=== PATIENT | female | born 1945 | race Caucasian/White ===

== ENCOUNTER 2016-10-08 09:18 | Observation (INO) | payer MEDICARE, BC ==
[2016-10-08] MEDS ORDERED: NS 0.9% 1000 ML* 1,000 ML IV ONE (09:49)
[2016-10-08 10:13] LABS: Hematocrit 46 % (35-47); Hemoglobin 15.1 g/dl (12.0-16.0); Mean Corpuscular HGB Conc 33 g/dl (31-36); Mean Corpuscular Hemoglobin 29 pg (27-31); Mean Corpuscular Volume 89 fL (80-97); Mean Platelet Volume 8 um3 (7.4-10.4); Red Blood Count 5.16 10^6/ul (4.0-5.4); Red Cell Distribution Width 15 % (10.5-15); White Blood Count 11.7 10^3/ul (3.5-10.8)
[2016-10-08 10:17] LABS: Add Diff/Slide Review? Slide Review Added; Comments Flag Yes
--- NOTE | 2016-10-08 10:24 | RAD ---
HISTORY: Upper abdominal pain COMPARISONS: June 14, 2011 VIEWS:1: Single frontal portable view of the chest at 10:00 AM FINDINGS: LINES AND TUBES: None. CARDIOMEDIASTINAL SILHOUETTE: The cardiomediastinal silhouette is normal for portable technique. PLEURA: The costophrenic angles are sharp. No pleural abnormalities are noted. LUNG PARENCHYMA: There is hyperinflation. There is emphysematous change of the lung apices. ABDOMEN: The upper abdomen is clear. There is no subphrenic gas. BONES AND SOFT TISSUES: No bone or soft tissue abnormalities are noted. IMPRESSION: EMPHYSEMA
[2016-10-08 10:29] LABS: Urine Bacteria Absent (Absent); Urine Bilirubin Negative (Negative); Urine Glucose Negative (Negative); Urine Nitrite Negative (Negative)
[2016-10-08 10:43] LABS: Albumin 3.6 g/dL (3.2-5.2); BUN/Creatinine Ratio 25.6 (8-20); C Reactive Protein 24.3 mg/L (< 5.00); Calcium 9.7 mg/dL (8.6-10.3); EGFR African American 79.4 (>60); EGFR Non-African American 61.7 (>60); Globulin 3.5 g/dL (2-4); Magnesium 2.2 mg/dL (1.9-2.7); Potassium 4.3 mmol/L (3.5-5.0); Total Bilirubin 1.5 mg/dL (0.2-1.0); Total Protein 7.1 g/dL (6.4-8.9)
[2016-10-08 10:45] LABS: Troponin I 0.03 ng/mL (<0.04)
[2016-10-08 10:51] LABS: TSH (Thyroid Stimulating Horm) 2.29 mcIU/mL (0.34-5.60)
[2016-10-08] MEDS ORDERED: Iohexol 300* (CONTRAST) 10 ML SDV IV ONE (11:23)
--- NOTE | 2016-10-08 12:09 | RAD ---
INDICATION: Epigastric and left upper quadrant pain and decreased oral intake. COMPARISON: There are no prior studies available for comparison. TECHNIQUE: A CT scan of the abdomen and pelvis was performed with intravenous and oral contrast following intravenous injection of 60 ml of Omnipaque 300 nonionic contrast. Contiguous axial sections were obtained from the lung bases through the symphysis pubis. Images were reconstructed in the coronal and sagittal planes. FINDINGS: Emphysematous changes are noted at the lung bases which are clear. No pleural effusion is present. The liver is markedly enlarged with numerous hypodense lesions present throughout the liver measuring up to 2.5 cm in size most consistent with diffuse metastatic disease. No intra or extra hepatic ductal distention is seen. The gallbladder appears contracted. No calcific gallstones are noted. The spleen is normal in size with a single central coarse calcification possibly related to old granulomatous disease. The pancreas appears to be within normal limits and is displaced toward the left side by the enlarged liver. No pancreatic ductal distention is seen. The left adrenal gland appears mildly enlarged. The right adrenal gland appears to be within normal limits. The kidneys are normal in size. No renal calculi or hydronephrosis is seen. There are bilateral renal cysts measuring up to 2.0 cm in size. The aorta is ectatic with moderate to severe calcific plaque present. No aneurysm is seen. No significant enlarged retroperitoneal lymph nodes are seen. There are enlarged left inguinal lymph nodes measuring up to 1.5 cm in transverse dimension. The stomach, small and large bowel appear nondistended. The appendix is not well visualized. There is a long segment of mild small bowel wall thickening involving the distal ileum. There is moderate descending and sigmoid diverticulosis without evidence for diverticulitis. The uterus is retroverted and normal in size. No adnexal cyst or masses are seen. There is a small amount of free intraperitoneal fluid present within the dependent portion of the pelvis. No free to peritoneal air is seen. No significant focal osseous abnormality is seen. IMPRESSION: 1. MARKEDLY ENLARGED LIVER WITH NUMEROUS DIFFUSE LESIONS MOST CONSISTENT WITH METASTATIC DISEASE. 2. MILD THICKENING OF THE WALL OF THE DISTAL SMALL BOWEL SUGGESTING THE POSSIBILITY OF ENTERITIS. 3. ENLARGED LEFT INGUINAL LYMPH NODES. 4. SMALL AMOUNT OF FREE INTRAPERITONEAL FLUID.
--- NOTE | 2016-10-08 12:41 | RAD ---
HISTORY: Epigastric pain, nausea, rule out metastatic disease COMPARISONS: CT of the abdomen and pelvis dated October 08, 2016 TECHNIQUE: Multiple contiguous axial CT scans of the chest were obtained without intravenous contrast. Coronal and sagittal multiplanar reformations are also submitted for review. FINDINGS: The study is limited by the lack of intravenous contrast. This limits evaluation of the solid organs and vasculature. NECK AND THYROID: The lower neck and thyroid are unremarkable. CHEST WALL: There is no lower cervical, axillary, or supraclavicular lymphadenopathy by size criteria. HEART AND PERICARDIUM: The heart is unremarkable. AORTA AND PULMONARY VASCULATURE: The aorta and pulmonary vasculature are normal. MEDIASTINUM: There is probable AP window and subcarinal lymphadenopathy. Evaluation is limited by lack of intravenous contrast. MARKY: There is an approximately 4.4 x 3.6 cm infrahilar mass on the left AIRWAY AND ESOPHAGUS: There is partial opacification of the bronchi to the left lower lobe LUNG PARENCHYMA: There is advanced centrilobular and panacinar emphysematous change PLEURA: No pleural abnormalities are noted. UPPER ABDOMEN: Again noted is enlarged liver with multiple hepatic masses BONES AND SOFT TISSUES: No bone or soft tissue abnormalities are noted. OTHER: None. IMPRESSION: EMPHYSEMA WITH 4.4 CM LEFT INFRAHILAR MASS AND PROBABLE MEDIASTINAL LYMPHADENOPATHY
[2016-10-08] MEDS ORDERED: Morphine INJ* 2 MG/ML 1 ML SYRINGE IV PRN (12:54)
[2016-10-08] MEDS ORDERED: Docusate CAP* 100 MG PO PRN (12:54)
[2016-10-08] MEDS ORDERED: Temazepam CAP* 15 MG PO PRN (12:54)
[2016-10-08] MEDS ORDERED: oxyCODONE TAB* 5 MG TAB PO PRN (13:00)
--- NOTE | 2016-10-08 13:41 | ED ---
angy Fields Timothy, scribed for Oscar Ryan MD on 10/08/16 at 0939 . Abdominal Pain/Female - HPI Summary HPI Summary: Phoebe Carmen is a 70 yo female presenting to [facility] with 7/10 intermittent left sided abd pain radiating to her back, and nausea since 09/24/16. Pt has had her teeth out recently, and has been on a non-chewy diet. Her is present in room, and states she did not eat much in the past 2 days. She has had some diarrhea recently as well. Her pain is alleviated to some extent with BM. She states she also has a lot of saliva, but has no respiratory symptoms. Her MHx includes HTN, reflux, PNA. - History of Current Complaint Chief Complaint: EDAbdPain Stated Complaint: STOMACH PAIN Time Seen by Provider: 10/08/16 09:35 Hx Obtained From: Patient Onset/Duration: Gradual Onset, Lasting Weeks, Still Present Timing: Intermittent Episode Lasting Severity Initially: Moderate Severity Currently: Moderate Pain Intensity: 7 Pain Scale Used: 0-10 Numeric Location: Diffuse - left sided Radiates: Yes Radiates to: Back Associated Signs and Symptoms: Positive: Nausea Allergies/Adverse Reactions: Allergies Allergy/AdvReac Type Severity Reaction Status Date / Time No Known Allergies Allergy Verified 10/08/16 07:35 Home Medications: Home Medications Lisinopril TAB* [Prinivil TAB*] 20 mg PO DAILY 10/08/16 [History Confirmed 10/08] Metoprolol Tartrate TAB* [Lopressor TAB*] 25 mg PO BID 10/08/16 [History Confirmed 10/08/16] amLODIPine TAB* [Norvasc 5 mg TAB*] 5 mg PO DAILY 10/08/16 [History Confirmed ] PMH/Surg Hx/FS Hx/Imm Hx Endocrine/Hematology History: Denies: Hx Diabetes, Hx Thyroid Disease Cardiovascular History: Reports: Hx Hypertension Respiratory History: Denies: Hx Asthma, Hx Chronic Obstructive Pulmonary Disease (COPD) GI History: Reports: Other GI Disorders - refluxm undiagnosed Denies: Hx Ulcer Infectious Disease History: Denies: Hx Hepatitis, Hx Human Immunodeficiency Virus (HIV), History Other Infectious Disease, Traveled Outside the [place] in Last 30 Days - Family History Known Family History: Positive: Unknown - PT ADOPTED, Hypertension - Social History Alcohol Use: Rare Substance Use Type: Reports: None Smoking Status (MU): Former Smoker - quit 05/21/16 Review of Systems Constitutional: Negative Eyes: Negative ENT: Other - increased saliva Cardiovascular: Negative Respiratory: Negative Positive: Abdominal Pain - left sided, radiates to back, Diarrhea, Nausea Genitourinary: Negative Musculoskeletal: Negative Skin: Negative Neurological: Negative Psychological: Normal All Other Systems Reviewed And Are Negative: Yes Physical Exam Triage Information Reviewed: Yes Vital Signs On Initial Exam: Initial Vitals Temp Pulse Resp BP 97.9 F 107 18 131/108 10/08/16 09:20 10/08/16 09:20 10/08/16 09:20 10/08/16 09:20 Vital Signs Reviewed: Yes Appearance: Positive: No Pain Distress, Well-Nourished, Ill-Appearing Skin: Positive: Warm, Skin Color Reflects Adequate Perfusion, Dry Head/Face: Positive: Normal Head/Face Inspection Eyes: Positive: EOMI, PANDA ENT: Positive: Hearing grossly normal, Other - oral mucosa dry. Negative: Muffled/hoarse voice Neck: Positive: Supple, Nontender Respiratory/Lung Sounds: Positive: Clear to Auscultation, Breath Sounds Present Cardiovascular: Positive: RRR Abdomen Description: Positive: Soft. Negative: Nontender - mild tenderness in epigastrium LUQ Bowel Sounds: Positive: Hypoactive Musculoskeletal: Positive: Strength/ROM Intact Neurological: Positive: Sensory/Motor Intact, Alert, Oriented to Person Place, Time Psychiatric: Positive: Affect/Mood Appropriate Diagnostics - Vital Signs Vital Signs Temp Pulse Resp BP 10/08/16 09:20 97.9 F 107 18 131/108 - Laboratory Lab Results: Lab Results 10/08/16 10/08/16 10/08/16 Range/Units 09:45 09:45 09:45 WBC 11.7 H (3.5-10.8) 10^3/ul RBC 5.16 (4.0-5.4) 10^6/ul Hgb 15.1 (12.0-16.0) g/dl Hct 46 (35-47) % MCV 89 (80-97) fL MCH 29 (27-31) pg MCHC 33 (31-36) g/dl RDW 15 (10.5-15) % Plt Count 270 (150-450) 10^3/ul MPV 8 (7.4-10.4) um3 Neut % (Auto) 86.1 H (38-83) % Lymph % (Auto) 6.7 L (25-47) % [place] % (Auto) 6.5 (1-9) % Eos % (Auto) 0.1 (0-6) % Baso % (Auto) 0.6 (0-2) % Absolute Neuts (auto) 10.1 H (1.5-7.7) 10^3/ul Absolute Lymphs (auto) 0.8 L (1.0-4.8) 10^3/ul Absolute Monos (auto) 0.8 (0-0.8) 10^3/ul Absolute Eos (auto) 0 (0-0.6) 10^3/ul Absolute Basos (auto) 0.1 (0-0.2) 10^3/ul Absolute Nucleated RBC 0.01 10^3/ul Nucleated RBC % 0.1 INR (Anticoag Therapy) 0.93 (0.89-1.11) APTT 26.5 (26.0-36.3) seconds Sodium 140 (133-145) mmol/L Potassium 4.3 (3.5-5.0) mmol/L Chloride 107 (101-111) mmol/L Carbon Dioxide 20 L (22-32) mmol/L Anion Gap 13 H (2-11) mmol/L BUN 23 (6-24) mg/dL Creatinine 0.90 (0.51-0.95) mg/dL Est GFR ( Amer) 79.4 (>60) Est GFR (Non-Af Amer) 61.7 (>60) BUN/Creatinine Ratio 25.6 H (8-20) Glucose 104 H (70-100) mg/dL Lactic Acid (0.5-2.0) mmol/L Calcium 9.7 (8.6-10.3) mg/dL Magnesium 2.2 (1.9-2.7) mg/dL Total Bilirubin 1.50 H (0.2-1.0) mg/dL AST 201 H (13-39) U/L ALT 152 H (7-52) U/L Alkaline Phosphatase 574 H (34-104) U/L Total Creatine Kinase 169 (10-223) U/L CK-MB (CK-2) 2.6 (0.6-6.3) ng/mL Troponin I 0.03 (<0.04) ng/mL C-Reactive Protein 24.30 H (< 5.00) mg/L B-Natriuretic Peptide ( - 100) pg/mL Total Protein 7.1 (6.4-8.9) g/dL Albumin 3.6 (3.2-5.2) g/dL Globulin 3.5 (2-4) g/dL Albumin/Globulin Ratio 1.0 (1-3) Lipase 59 (11.0-82.0) U/L TSH 2.29 (0.34-5.60) mcIU/mL Urine Color Urine Appearance Urine pH (5-9) Ur Specific Cope (1.010-1.030) Urine Protein (Negative) Urine Ketones (Negative) Urine Blood (Negative) Urine Nitrate (Negative) Urine Bilirubin (Negative) Urine Urobilinogen (Negative) Ur Leukocyte Esterase (Negative) Urine WBC (Auto) (Absent) Urine RBC (Auto) (Absent) Ur Squamous Epith Cells (Absent) Urine Bacteria (Absent) Urine Glucose (Negative) 10/08/16 10/08/16 10/08/16 Range/Units 09:45 09:45 09:45 WBC (3.5-10.8) 10^3/ul RBC (4.0-5.4) 10^6/ul Hgb (12.0-16.0) g/dl Hct (35-47) % MCV (80-97) fL MCH (27-31) pg MCHC (31-36) g/dl RDW (10.5-15) % Plt Count (150-450) 10^3/ul MPV (7.4-10.4) um3 Neut % (Auto) (38-83) % Lymph % (Auto) (25-47) % [place] % (Auto) (1-9) % Eos % (Auto) (0-6) % Baso % (Auto) (0-2) % Absolute Neuts (auto) (1.5-7.7) 10^3/ul Absolute Lymphs (auto) (1.0-4.8) 10^3/ul Absolute Monos (auto) (0-0.8) 10^3/ul Absolute Eos (auto) (0-0.6) 10^3/ul Absolute Basos (auto) (0-0.2) 10^3/ul Absolute Nucleated RBC 10^3/ul Nucleated RBC % INR (Anticoag Therapy) (0.89-1.11) APTT (26.0-36.3) seconds Sodium (133-145) mmol/L Potassium (3.5-5.0) mmol/L Chloride (101-111) mmol/L Carbon Dioxide (22-32) mmol/L Anion Gap (2-11) mmol/L BUN (6-24) mg/dL Creatinine (0.51-0.95) mg/dL Est GFR ( Amer) (>60) Est GFR (Non-Af Amer) (>60) BUN/Creatinine Ratio (8-20) Glucose (70-100) mg/dL Lactic Acid 3.7 H* (0.5-2.0) mmol/L Calcium (8.6-10.3) mg/dL Magnesium (1.9-2.7) mg/dL Total Bilirubin (0.2-1.0) mg/dL AST (13-39) U/L ALT (7-52) U/L Alkaline Phosphatase (34-104) U/L Total Creatine Kinase (10-223) U/L CK-MB (CK-2) (0.6-6.3) ng/mL Troponin I (<0.04) ng/mL C-Reactive Protein (< 5.00) mg/L B-Natriuretic Peptide 119 H ( - 100) pg/mL Total Protein (6.4-8.9) g/dL Albumin (3.2-5.2) g/dL Globulin (2-4) g/dL Albumin/Globulin Ratio (1-3) Lipase (11.0-82.0) U/L TSH (0.34-5.60) mcIU/mL Urine Color Vivienne Urine Appearance Cloudy Urine pH 5.0 (5-9) Ur Specific Cope 1.024 (1.010-1.030) Urine Protein 2+(100 mg/dl) H (Negative) Urine Ketones Trace H (Negative) Urine Blood Negative (Negative) Urine Nitrate Negative (Negative) Urine Bilirubin Negative (Negative) Urine Urobilinogen Positive H (Negative) Ur Leukocyte Esterase Negative (Negative) Urine WBC (Auto) Absent (Absent) Urine RBC (Auto) Absent (Absent) Ur Squamous Epith Cells Present H (Absent) Urine Bacteria Absent (Absent) Urine Glucose Negative (Negative) Result Diagrams: 10/08/16 09:45 10/08/16 09:45 Lab Statement: Any lab studies that have been ordered have been reviewed, and results considered in the medical decision making process. - Radiology CXR Xray Interpretation: Positive (See Comments) - IMPRESSION: EMPHYSEMA Radiology Interpretation Completed By: Radiologist - CT A/P CT Interpretation: Positive (See Comments) - IMPRESSION: 1. MARKEDLY ENLARGED LIVER WITH NUMEROUS DIFFUSE LESIONS MOST CONSISTENT WITH METASTATIC DISEASE. 2. MILD THICKENING OF THE WALL OF THE DISTAL SMALL BOWEL SUGGESTING THE POSSIBILITY OF ENTERITIS. 3. ENLARGED LEFT INGUINAL LYMPH NODES. 4. SMALL AMOUNT OF FREE INTRAPERITONEAL FLUID. CT Interpretation Completed By: Radiologist Chest CT Interpretation: Positive (See Comments) - IMPRESSION: EMPHYSEMA WITH 4.4 CM LEFT INFRAHILAR MASS AND PROBABLE MEDIASTINAL LYMPHADENOPATHY CT Interpretation Completed By: Radiologist - EKG 1030 Cardiac Rate: NL - [address] Segment: Normal Ectopy: None EKG Interpretation: NSR @ 93 BPM, normal ST, no ectopy Re-Evaluation - Re-Evaluation First Eval Re-Evaluation Time: 12:32 Change: Unchanged Comment: Discussed lab and imaging results, as well as conversations with Dr. Serrano and Dr. Corral. Pt is agreeable to be admitted. Her and son were present in room. Pt states she had a normal mammogram last March, and so declined the breast exam at this time. Abdominal Pain Fem Course/Dx - Course Course Of Treatment: Phoebe Carmen is a 70 yo female presenting to [facility] with 7/10 intermittent left sided abd pain radiating to her back with nausea since . In the ED she received IV fluids. Her CXR suggests emphysema. Her CT A/P suggests 1. MARKEDLY ENLARGED LIVER WITH NUMEROUS DIFFUSE LESIONS MOST CONSISTENT WITH METASTATIC. DISEASE. DISCUSSED RESULTS WITH PATIENT// SON/DR CORRAL-GWEN/ONC. DR CORRAL RECOMMENDED LIVER BX. PATIENT IS HAVING DIFFICULTY WITH PO INTAKE, PATIENT ADMITTED STABLE BY THE HOSPITALIST. DISCUSSED THE NEED FOR A BREAST EXAM, THE PATIENT DECLINE A BREAST EXAM IN THE ED. 2. MILD THICKENING OF THE WALL OF THE DISTAL SMALL BOWEL SUGGESTING THE POSSIBILITY OF. ENTERITIS. 3. ENLARGED LEFT INGUINAL LYMPH NODES. 4. SMALL AMOUNT OF FREE INTRAPERITONEAL FLUID. Her Chest CT suggests. EMPHYSEMA WITH 4.4 CM LEFT INFRAHILAR MASS AND PROBABLE MEDIASTINAL LYMPHADENOPATHY. After clinical examination and review of her lab and imaging studies, as well as discussion with Dr. Corral and Dr. Serrano, she will be admitted to [facility] for further evaluation and treatment. - Diagnoses Provider Diagnoses: Emphysema lung, Liver masses, Abdominal pain - Provider Notifications Discussed Care Of Patient With: 1204 - Dr. Serrano (hospitalist) - discussed Pt condition, recommends chest CT and admission to [facility]. 1216 - Dr. Corral ( Hematology and Oncology) - Discussed Pt condition and Hx, recommends either outpatient or inpatient follow up with liver biopsy, as well as a breast exam. 1244 - Dr. Serrano (hospitalist) - accepts Pt for admission. Instructed by Provider To: Admit As Inpatient Discharge - Discharge Plan Condition: Stable Disposition: ADMITTED TO [facility] Referrals: No Primary Care Phys,NOPCP [Primary Care Provider] - The documentation as recorded by the angy beckham Timothy accurately reflects the service I personally performed and the decisions made by me, Oscar Ryan MD.
--- NOTE | 2016-10-08 15:12 | HP ---
HISTORY AND PHYSICAL: DATE OF ADMISSION: 10/08/16 PRIMARY CARE PROVIDER: Dr. Moyer. CHIEF COMPLAINT: Abdominal pain and inability to eat. HISTORY OF PRESENT ILLNESS: Ms. Carmen is a 70-year-old female with history of hypertension who presented to the hospital complaining of right upper quadrant abdominal pain, inability to eat for 10 days. The patient stated she lost approximately 8 pounds in the past couple of months. The patient was noted to have hepatomegaly and mild tenderness in the epigastric region and on the palpation of the liver. Subsequent CT of the liver showed multiple liver metastasis and hepatomegaly secondary to it. A CT of the chest showed left hilar mass of over 4 cm. The patient is going to be placed for observation with a diagnosis of dehydration, liver and lung masses. PAST MEDICAL HISTORY: Hypertension. CURRENT MEDICATIONS: 1. Norvasc 5 mg daily. 2. Metoprolol tartrate 25 mg b.i.d. 3. Lisinopril 20 mg daily. 4. Acetaminophen on a p.r.n. basis. ALLERGIES: No known drug allergies. FAMILY HISTORY: Unknown. The patient is adopted. SOCIAL HISTORY: The patient quit smoking on May 31, 2016. She started smoking when she was 18 years old and smoked until May of 2016 one pack per day. She very rarely uses alcohol. She denies any drug use. She is retired and her , Naseem is her surrogate. REVIEW OF SYSTEMS: Please see history of present illness. On the patient's day of admission, the patient stated that she always "coughs up phlegm." She stated that she never had respiratory issues and never needed to use an inhaler. All the remaining 14 systems were reviewed with the patient and were otherwise negative. PHYSICAL EXAMINATION GENERAL: The patient is a very pleasant 70-year-old female who is in no acute distress. Alert, awake, and oriented x3. VITAL SIGNS: Blood pressure of 146/81, heart rate of 62 and regular, respiratory rate of 16, oxygen saturation 96% on room air, temperature 98.6. HEENT: Head: Atraumatic, normocephalic. Eyes: Pupils equal, reactive to light and accommodation. Oropharynx clear. Mucosa moist. NECK: Supple. No JVD, no bruit bilaterally. RESPIRATORY: Distant breath sounds bilaterally with scant wheezes in the right lower lobe. CARDIOVASCULAR: Regular rate and rhythm with tachycardia. No murmur. ABDOMEN: Soft, mildly tender in the right upper quadrant epigastric region on palpation of the liver. Palpable hepatomegaly noted 4 cm below right costophrenic margin present. EXTREMITIES: There is no edema. Pulses +2 bilaterally. There is no clubbing or cyanosis. NEUROLOGIC: Speech clear. Cranial nerves II through XII grossly intact. Motor strength is 5/5 bilaterally. SKIN: On evaluation of the skin, the patient has what appears to be necrotic lesion on her forehead of approximately 0.5 cm. The patient stated that she had been "picking at it." There is no evidence of acute infection. PSYCHIATRIC EVALUATION: Oriented x3, very pleasant and cooperative with no evidence of anxiety or depression. LABORATORY DATA: Showed white blood cell count 11.7, hemoglobin of 15.1, hematocrit 46, and platelets of 270. INR of 0.93, PTT of 26.5. Sodium is 140, potassium 4.3, chloride 107, carbon dioxide 20, BUN 23, creatinine 0.9. Liver function test showed total bilirubin of 1.5, AST of 21, ALT of 152. Alkaline phosphatase of 574. C-reactive protein of 24. Troponin of 0.03. TSH of 2.29. Lactic acid elevated at 3.7. Urinalysis showed trace ketones, +[address] of the abdomen and pelvis: Impression: "Markedly enlarged liver with numerous diffuse lesions most consistent with metastatic disease. Mild thickening of the wall of the distal small bowel suggested a possibility of enteritis. Enlarged left inguinal lymph nodes. Small amount of free intraperitoneal fluid." Chest CT done separately after the CT of the abdomen and pelvis showed impression: Emphysema with a 4.4 cm left infrahilar mass with probable mediastinal lymphadenopathy. The patient's EKG showed sinus tachycardia with a heart rate of 23 beats per minute with no ST changes. ASSESSMENT AND PLAN: A 70-year-old female with history of long-term smoking who quit smoking in May of 2016 and today presents with what appears to be lung mass and liver metastasis. In regards to the patient's inability to eat, the patient is going to be placed on antiemetic and intravenous hydration. The patient does appear to be dehydrated. She is going to be placed on observation. In regards to the patient's metastasis disease of the liver with metastasis to the lungs primary, I will consult Oncology. I will also ask Radiology to perform liver biopsy for specification of the malignancy. In regards to hypertension, Lopressor is going to be continued. For the time being, I am going to hold Norvasc and lisinopril. For DVT prophylaxis, the patient is going to be placed on heparin subcutaneously. Code status is full and her surrogate is her , Naseem. TIME SPENT: Approximately 65 minutes were spent on admission of this patient, more than half that time was spent [id number] with the patient during the interview and physical exam. CC: Dr. Moyer; Dr. Good* [id number]/CPS #: [id number] [facility]
[2016-10-08] MEDS: NS 0.9% 1000 ML* 1,000 ML IV SCH (15:29)
[2016-10-08] MEDS: Ondansetron INJ* 2 MG/ML VIAL IV PRN (16:40)
[2016-10-08 19:25] LABS: Hematocrit 41 % (35-47); Hemoglobin 13.2 g/dl (12.0-16.0); Mean Corpuscular HGB Conc 32 g/dl (31-36); Mean Corpuscular Hemoglobin 29 pg (27-31); Mean Corpuscular Volume 90 fL (80-97); Mean Platelet Volume 8 um3 (7.4-10.4); Red Blood Count 4.59 10^6/ul (4.0-5.4); Red Cell Distribution Width 15 % (10.5-15); White Blood Count 11.1 10^3/ul (3.5-10.8)
[2016-10-08 19:42] LABS: EGFR Non-African American 66.8 (>60)
[2016-10-08] MEDS: Metoprolol Tartrate TAB* 25 MG PO SCH (21:50)
[2016-10-08] MEDS: Heparin VIAL(*) 5000 UNITS/ML VIAL (FIVE THOUSAND) SUBCUT SCH (21:50)
[2016-10-09] MEDS: NS 0.9% 1000 ML* 1,000 ML IV SCH (00:21)
[2016-10-09] MEDS ORDERED: Benzonatate CAP* 100 MG PO PRN (02:27)
[2016-10-09] MEDS: Heparin VIAL(*) 5000 UNITS/ML VIAL (FIVE THOUSAND) SUBCUT SCH ×2 (07:00→14:04)
[2016-10-09] MEDS: Metoprolol Tartrate TAB* 25 MG PO SCH (07:56)
[2016-10-09] MEDS: Ondansetron INJ* 2 MG/ML VIAL IV PRN (07:57)
--- NOTE | 2016-10-09 08:05 | CONSULT ---
Consultation - Reason for Consultation Reason for Consultation: liver masses Ordering Provider: Erin Serrano Chief Complaint: abdominal pain History of Present Illness: Very pleasant 70 yo F w PMH of heavy tobacco use (quit 5 months ago), COPD and HTN presenting with abdominal pain and found to have liver masses. Bernie reports that over the last several weeks she has developed worsening nausea and right upper quadrant pain. She has lost ~14 pounds over that period of time, mainly because she is not eating. She has been alternating between small, hard , bowel movements and diarrhea. She denies headaches, diplopia, or weakness. She denies any bony pain. She came to the ER because of these complaints and was noted to have tender hepatomegaly on exam. CT A/P revealed an enlarged liver with multiple masses suggestive of metastatic disease, distal small bowel thickening, and a small left inguinal node. CT chest done to look for a primary revealed a 4 cm left hilar mass. She was admitted for pain control and biopsy. She does have a skin lesion mid-forehead that she has been picking at for at least a month and is nonhealing. She had a mammogram in March. Allergies/Medications Medication: Benzonatate (Tessalon Cap*) 200 mg PO TID PRN PRN Reason: COUGH Last Admin: 10/09/16 02:37 Dose: 200 mg Docusate Sodium (Colace Cap*) 100 mg PO BID PRN PRN Reason: CONSTIPATION Heparin Sodium (Porcine) (Heparin Vial(*)) 5,000 units SUBCUT Q8HR [facility] Stop: 10/09/16 21:59 Last Admin: 10/09/16 07:00 Dose: Not Given Metoprolol Tartrate (Lopressor Tab*) 25 mg PO BID [facility] Last Admin: 10/09/16 07:56 Dose: 25 mg Morphine Sulfate (Morphine Inj (Syringe)*) 1 mg IV Q4H PRN PRN Reason: PAIN Ondansetron HCl (Zofran Inj*) 4 mg IV Q6H PRN PRN Reason: NAUSEA Last Admin: 10/09/16 07:57 Dose: 4 mg Oxycodone HCl (Roxycodone Tab*) 5 mg PO Q4H PRN PRN Reason: PAIN Last Admin: 10/08/16 17:58 Dose: 5 mg Temazepam (Restoril Cap*) 15 mg PO BEDTIME PRN PRN Reason: INSOMNIA Allergies/Adverse Reactions: Allergies Allergy/AdvReac Type Severity Reaction Status Date / Time No Known Allergies Allergy Verified 10/08/16 07:35 History - Past Medical History Other History: HTN. COPD--clear emphysema on CT, never diagnosis. tonsillectomy - Family History Other Family History: adopted. 2 children, healthy - Social History Hx Alcohol Use: No Hx Tobacco Use: Yes - quit in May, smoked 1ppd x 50 yrs Marital Status: Review of Systems - Review of Systems Constitutional Symptoms: Positive: Weight Loss Dermatology: Positive: Skin Lesions - lesion mid forehead HEENT: Positive: Normal Eyes: Positive: Normal Thyroid: Positive: Normal Pulmonary: Positive: Normal Cardiology: Positive: Normal Gastroenterology: Positive: Abdominal Pain, Nausea, Anorexia Genital - Urinary: Positive: Normal Musculoskeletal: Positive: Other - mild right knee pain, dropped something on it Endocrinology: Positive: Normal Neurology: Positive: Normal Psychiatry: Positive: Normal Physical Exam - Physical Exam Physical Examination: Vital Signs Temp Pulse Resp BP Pulse Ox 97.4 F 80 18 136/62 92 10/09/16 07:20 10/09/16 07:20 10/09/16 07:18 10/09/16 07:20 10/09/16 07:20 cachectic appearing perr eomi op-adentulous on top, poor dentition bottom distant breath sounds s1 s2 nl distended, markedly enlarged liver no le edema breasts: small, dense, no masses no palpable adenopathy (can not palpate left inguinal adenopathy) A+O x 3, nonfocal neurological exam 3 mm rounded black lesion midforehead Results - Lab Results Lab Results: 10/08/16 10/08/16 10/08/16 19:20 19:20 19:20 WBC 11.1 H RBC 4.59 Hgb 13.2 Hct 41 MCV 90 MCH 29 MCHC 32 RDW 15 Plt Count 247 MPV 8 Neut % (Auto) 87.4 H Lymph % (Auto) 6.3 L [place] % (Auto) 5.7 Eos % (Auto) 0.2 Baso % (Auto) 0.4 Absolute Neuts (auto) 9.7 H Absolute Lymphs (auto) 0.7 L Absolute Monos (auto) 0.6 Absolute Eos (auto) 0 Absolute Basos (auto) 0 Absolute Nucleated RBC 0.01 Nucleated RBC % 0.1 INR (Anticoag Therapy) 0.97 APTT 27.0 BUN 21 Creatinine 0.84 Est GFR ( Amer) 86.0 Est GFR (Non-Af Amer) 66.8 CT scans personally reviewed, reports per [facility] Assessment and Plan Impression: Unfortunate 70 yo F w emphysema and long standing tobacco use presenting with abdominal pain and found to have marked hepatomegaly and a 4 cm left hilar mass , highly suspicious for metastatic lung cancer. I have discussed this with Phoebe and her Naseem at length. She is planned for a biopsy with interventional radiology today. We discussed that the treatment options are most certainly palliative (unless this is lymphoma) and will depend on the etiology of her disease. I am curious about her skin lesion on her face (? could this be metastatic melanoma) but will address as an outpatient depending on her biopsy results. She will likely go home today with oral pain control and anti-nausea meds. I will see her back in my office on the at 1:20 pm to review (and will present her case earlier that day at our tumor board). Thank you for this consultation.
[2016-10-09] MEDS ORDERED: fentaNYL* 50 MCG/ML 2 ML VIAL (100 MCG VIAL) ONE (10:29)
--- NOTE | 2016-10-09 12:30 | RAD ---
INDICATION: Innumerable hepatic lesions largely replacing the hepatic parenchyma. COMPARISON: CT abdomen pelvis October 08, 2016 ANESTHESIA: Intravenous fentanyl and lidocaine injected locally. The benefits and risks of procedure explained to the patient and the patient signed informed consent. Multiple images of the liver were obtained and a fairly well circumscribed and demarcated hypodense lesion in the inferior right lower lobe identified. A percutaneous tract was determined leading into the liver lesion. Color flow imaging did not show any pulsating arteries in the intended biopsy tract or within the intended liver parenchyma biopsy site. Prebiopsy ultrasound images were saved. A time out was performed before beginning the procedure. The patient was prepped and draped in the usual sterile fashion. The overlying skin, subcutaneous tissue and liver capsule were anesthetized with 1% lidocaine under sonographic guidance. Percutaneously and under sonographic control fine-needle aspiration was performed. Imaging was saved. The needle and syringe were provided to the attending cytopathologist who indicated the sample acquired was adequate for diagnosis. According to the same technique 2 additional fine-needle aspirations were acquired at the request of the attending cytopathologist to assure adequacy of sample size. The post procedure ultrasound demonstrates no evidence of a large hematoma or perinephric fluid. The biopsy site was dressed with sterile gauze and direct manual pressure was held for 5 minutes. The patient tolerated procedure well without incident. The patient was returned to her inpatient room with directions to lay in the right lateral decubitus position x1 hour. IMPRESSION: Uncomplicated ultrasound-guided fine-needle aspiration of a liver lesion as described above.
[2016-10-09 14:58] VITALS: BP 134/59
--- NOTE | 2016-10-10 01:49 | DS ---
DISCHARGE SUMMARY: DATE OF ADMISSION: 10/08/16 DATE OF DISCHARGE: 10/09/16 PRIMARY CARE PROVIDER: Dr. Moyer. DISCHARGE DIAGNOSES: 1. Left hilar lung mass. 2. Marked hepatomegaly with liver metastasis. MEDICATIONS AT DISCHARGE: Includes: 1. Acetaminophen on a p.r.n. basis. 2. Lopressor 25 mg b.i.d. 3. Zofran 4 mg every 6 hours p.r.n. 4. Senna with docusate 1 tablet daily p.r.n. 5. Amlodipine 5 mg daily. 6. Oxycodone 5 mg every 4 hours p.r.n. pain. The patient was dispensed a prescription for 30 tablets total. I-STOP was checked. LABORATORY DATA AND STUDIES: Performed during the hospital stay included: The patient's BUN on 10/08/16 was 21, creatinine of 0.84. CT of the abdomen and pelvis: Impression: "Markedly enlarged liver with numerous diffuse lesions most consistent with metastatic disease. Mild thickening of the wall of the distal small bowel suggesting possibility of enteritis. Enlarged left inguinal lymph nodes. Small amount of free intraperitoneal fluid." Chest CT: Impression: Emphysema with a 4.4 cm left infrahilar mass with probable mediastinal lymphadenopathy." CONSULTATIONS DURING THE HOSPITAL STAY: Included Dr. Good from Oncology. PROCEDURE DURING THE HOSPITAL STAY: Included a CT-guided biopsy of the liver performed by interventional radiologist with pathology report pending. PHYSICAL EXAM AT THE TIME OF DISCHARGE: Unchanged from admission. HOSPITALIZATION COURSE: Phoebe Carmen is a 70-year-old female with a history of smoking as well as hypertension who presented to the hospital complaining of problems with eating early satiety. The patient was noticed to have mild epigastric tenderness and mild hepatomegaly. CT of the abdomen and pelvis showed markedly enlarged liver. Further CT evaluation of the chest shows a left hilar mass of 4.4 cm. The patient was observed overnight and treated for a dehydration with intravenous fluids. Dr. Good saw the patient in Oncology consultation and recommended a CT-guided biopsy of the liver that was obtained just before discharge on 10/09/16. The patient tolerated the procedure well and she is going to be discharged with antiemetics and pain medications. She is to follow up with the oncologist, Dr. Good, on 10/15/16 at 1:20 p.m. The patient is also recommended to follow up with Dr. Moyer her primary care provider in approximately 4 to 7 days. Please note that this is a short summary of the patient's hospital stay. Please refer to further medical records for details. CC: Dr. Kandice Good; Dr. Moyer * [id number]/[facility] #: [id number] MTDD
== END 2016-10-09 14:50 | disposition home or self-care (01) ==
LOC: ED 09:18 → MED 12:54
PROVIDERS: ADMIT Internal Medicine; ATTEND Internal Medicine
DX: E86.0 Dehydration (principal); C34.90 Malignant neoplasm of unspecified part of unspecified bronchus or lung; C78.7 Secondary malignant neoplasm of liver and intrahepatic bile duct; R16.0 Hepatomegaly, not elsewhere classified; I10 Essential (primary) hypertension; Z87.891 Personal history of nicotine dependence; R59.0 Localized enlarged lymph nodes; J43.9 Emphysema, unspecified; R10.11 Right upper quadrant pain; Z79.899 Other long term (current) drug therapy
CPT/HCPCS: 36415; 47000; 71010; 71250; 74177; 76942; 80053; 81003; 81015; 82550; 82553; 82565; 83605; 83690; 83735; 83880; 84443; 84484; 84520; 85025; 85610; 85730; 86140; 88172; 88173; 88305; 88341; 88342; 93005; 96361; 96372; 96374; 99223; 99284; A9270-GY; G0378; J1644; J2405; J3010; Q9967

== ENCOUNTER 2016-10-26 19:04 | Inpatient (IN) | payer MEDICARE, BC ==
[2016-10-26] MEDS ORDERED: Ondansetron INJ* 2 MG/ML VIAL IV ONE (19:33)
[2016-10-26] MEDS ORDERED: Acetaminophen TAB* 325 MG PO ONE (19:33)
[2016-10-26] MEDS ORDERED: NS 0.9% 1000 ML* 1,000 ML IV ONE (19:33)
[2016-10-26] MEDS ORDERED: Morphine INJ* 2 MG/ML 1 ML SYRINGE IV PRN (19:34)
--- NOTE | 2016-10-26 20:07 | RAD ---
HISTORY: Fever, history of lung cancer COMPARISONS: October 08, 2016 VIEWS: 2: Frontal dual-energy and lateral views of the chest. FINDINGS: CARDIOMEDIASTINAL SILHOUETTE: The cardiomediastinal silhouette is normal. MARKY: The marky are normal. PLEURA: The costophrenic angles are sharp. No pleural abnormalities are noted. LUNG PARENCHYMA: There is hyperinflation with flattening of the diaphragm and expansion of the AP diameter of the chest. ABDOMEN: The upper abdomen is clear. There is no subphrenic gas. BONES AND SOFT TISSUES: No bone or soft tissue abnormalities are noted. OTHER: None. IMPRESSION: HYPERINFLATION, CONSISTENT WITH COPD. NO ACTIVE CARDIOPULMONARY DISEASE.
[2016-10-26 20:10] LABS: Albumin 3.2 g/dL (3.2-5.2); BUN/Creatinine Ratio 23.1 (8-20); Calcium 9.1 mg/dL (8.6-10.3); EGFR African American 115.6 (>60); EGFR Non-African American 89.9 (>60); Globulin 3.2 g/dL (2-4); Magnesium 1.8 mg/dL (1.9-2.7); Potassium 3.6 mmol/L (3.5-5.0); Total Bilirubin 1.1 mg/dL (0.2-1.0); Total Protein 6.4 g/dL (6.4-8.9)
[2016-10-26 20:11] LABS: Troponin I 0.01 ng/mL (<0.04)
[2016-10-26 20:13] LABS: Add Diff/Slide Review? Slide Review Added; Comments Flag Yes; Hematocrit 37 % (35-47); Hemoglobin 12.3 g/dl (12.0-16.0); Mean Corpuscular HGB Conc 33 g/dl (31-36); Mean Corpuscular Hemoglobin 30 pg (27-31); Mean Corpuscular Volume 89 fL (80-97); Mean Platelet Volume 8 um3 (7.4-10.4); Red Blood Count 4.16 10^6/ul (4.0-5.4); Red Cell Distribution Width 15 % (10.5-15); White Blood Count 0.5 10^3/ul (3.5-10.8)
[2016-10-26] MEDS ORDERED: Cefepime(*) 2 GM in NS 0.9% 50 ML* 50 ML IVPB ONE (20:31)
--- NOTE | 2016-10-26 20:32 | ED ---
Kurtis Fields Erika, scribed for Naseem Ruth MD on 10/26/16 at 1934 . Abdominal Pain/Female - HPI Summary HPI Summary: Patient is a 70-year-old female presenting to the ED with a CC of abdominal pain. Patient reports that she was constipated starting about a week ago. For the past 48 hours, patient has developed upper abdominal cramping and vomiting with PO intake. She states she has been able to tolerate small amounts of liquid. Pt states slight nausea. She also reports chronic diarrhea. Pt was recently diagnosed with lung CA with liver mets, and had her first chemotherapy 2 weeks ago - she is followed by Dr. Good. Pt states she has not taken any of her oxycodone today. - History of Current Complaint Chief Complaint: EDAbdPain Stated Complaint: ABD PAIN/DEHYDRATION Time Seen by Provider: 10/26/16 19:20 Hx Obtained From: Patient, Family/Rubber Trimmer Onset/Duration: Lasting Days - 2, Still Present Timing: Intermittent Episode Lasting - minutes Severity Currently: Moderate Pain Intensity: 3 Pain Scale Used: 0-10 Numeric Location: Epigastric Radiates: No Character: Cramping Aggravating Factor(s): Food Associated Signs and Symptoms: Positive: Nausea, Vomiting Allergies/Adverse Reactions: Allergies Allergy/AdvReac Type Severity Reaction Status Date / Time No Known Allergies Allergy Verified 10/08/16 07:35 PMH/Surg Hx/FS Hx/Imm Hx Endocrine/Hematology History: Denies: Hx Diabetes, Hx Thyroid Disease Cardiovascular History: Reports: Hx Hypertension Respiratory History: Denies: Hx Asthma, Hx Chronic Obstructive Pulmonary Disease (COPD) GI History: Denies: Hx Ulcer History: Denies: Hx Renal Disease Sensory History: Reports: Hx Contacts or Glasses Denies: Hx Hearing Aid Opthamlomology History: Reports: Hx Contacts or Glasses - Cancer History Cancer Type, Location and Year: Lung CA, mets to liver Infectious Disease History: No Infectious Disease History: Denies: Hx Hepatitis, Hx Human Immunodeficiency Virus (HIV), History Other Infectious Disease, Traveled Outside the [place] in Last 30 Days - Family History Known Family History: Positive: Unknown - Patient is adopted - Social History Alcohol Use: Rare Hx Substance Use: No Substance Use Type: Reports: None Hx Tobacco Use: Yes - quit in May, smoked 1ppd x 50 yrs Smoking Status (MU): Former Smoker Type: Cigarettes Review of Systems Positive: Fever Positive: Abdominal Pain, Vomiting, Diarrhea - chronically, with constipation last week, Nausea All Other Systems Reviewed And Are Negative: Yes Physical Exam Triage Information Reviewed: Yes Vital Signs On Initial Exam: Initial Vitals Temp Pulse Resp BP Pulse Ox 101.4 F 104 19 112/42 96 10/26/16 19:06 10/26/16 19:06 10/26/16 19:06 10/26/16 19:06 10/26/16 19:06 Vital Signs Reviewed: Yes Appearance: Positive: Pain Distress - mild discomfort, Thin, Cachectic Skin: Positive: Warm Head/Face: Positive: Normal Head/Face Inspection Eyes: Positive: PANDA ENT: Positive: Hearing grossly normal Neck: Positive: Supple Respiratory/Lung Sounds: Positive: Breath Sounds Present Cardiovascular: Positive: RRR Abdomen Description: Positive: Soft, Distended - mild diffuse tendewrness Musculoskeletal: Positive: Strength/ROM Intact Neurological: Positive: Alert, Oriented to Person Place, Time Diagnostics - Vital Signs Vital Signs Temp Pulse Resp BP Pulse Ox 10/26/16 19:06 101.4 F 104 19 112/42 96 - Laboratory Lab Results: Lab Results 10/26/16 10/26/16 10/26/16 Range/Units 19:45 19:45 19:45 WBC 0.5 L (3.5-10.8) 10^3/ul RBC 4.16 (4.0-5.4) 10^6/ul Hgb 12.3 (12.0-16.0) g/dl Hct 37 (35-47) % MCV 89 (80-97) fL MCH 30 (27-31) pg MCHC 33 (31-36) g/dl RDW 15 (10.5-15) % Plt Count 75 L D (150-450) 10^3/ul MPV 8 (7.4-10.4) um3 Neut % (Auto) 1.8 L (38-83) % Lymph % (Auto) 77.0 H (25-47) % [place] % (Auto) 11.5 H (1-9) % Eos % (Auto) 8.8 H (0-6) % Baso % (Auto) 0.9 (0-2) % Absolute Neuts (auto) 0 L* (1.5-7.7) 10^3/ul Absolute Lymphs (auto) 0.4 L (1.0-4.8) 10^3/ul Absolute Monos (auto) 0.1 (0-0.8) 10^3/ul Absolute Eos (auto) 0 (0-0.6) 10^3/ul Absolute Basos (auto) 0 (0-0.2) 10^3/ul Absolute Nucleated RBC 0 10^3/ul Nucleated RBC % 0 Hem Pathologist Commnt Pending Sodium 135 (133-145) mmol/L Potassium 3.6 (3.5-5.0) mmol/L Chloride 102 (101-111) mmol/L Carbon Dioxide 24 (22-32) mmol/L Anion Gap 9 (2-11) mmol/L BUN 15 (6-24) mg/dL Creatinine 0.65 (0.51-0.95) mg/dL Est GFR ( Amer) 115.6 (>60) Est GFR (Non-Af Amer) 89.9 (>60) BUN/Creatinine Ratio 23.1 H (8-20) Glucose 106 H (70-100) mg/dL Lactic Acid 1.0 (0.5-2.0) mmol/L Calcium 9.1 (8.6-10.3) mg/dL Magnesium 1.8 L (1.9-2.7) mg/dL Total Bilirubin 1.10 H (0.2-1.0) mg/dL AST 42 H (13-39) U/L ALT 48 (7-52) U/L Alkaline Phosphatase 466 H (34-104) U/L Troponin I 0.01 (<0.04) ng/mL Total Protein 6.4 (6.4-8.9) g/dL Albumin 3.2 (3.2-5.2) g/dL Globulin 3.2 (2-4) g/dL Albumin/Globulin Ratio 1.0 (1-3) Result Diagrams: 10/26/16 19:45 10/26/16 19:45 Lab Statement: Any lab studies that have been ordered have been reviewed, and results considered in the medical decision making process. - Radiology CXR Radiology Interpretation Completed By: Radiologist - IMPRESSION: HYPERINFLATION , CONSISTENT WITH COPD. NO ACTIVE CARDIOPULMONARY DISEASE. - EKG 19:51 Cardiac Rate: Tachycardia - at 106 bpm EKG Rhythm: Sinus Tachycardia Ectopy: PVCs - occasional Abdominal Pain Fem Course/Dx - Course Course Of Treatment: Patient is a 70 y/o F presenting to the ED with a CC of abdominal pain with PO intake. Pt was recently diagnosed with lung CA metastasizing to the liver, and had her first chemotherapy 2 weeks ago. Lab work reveals a WBC of 0.5 and neutrophil % of 1.8%. EKG shows sinus tachycardia with occasional PVCs. CXR is consistent with COPD. Pt was given IV fluids, morphine, zofran, Tylenol, and cefepime in the ED course. Case was discussed with Dr. Canas (oncology) and Dr. Coleman (hospitalist), and patient will be admitted to the hospital for further work up and management. - Diagnoses Provider Diagnoses: Neutropenic fever - Provider Notifications Discussed Care Of Patient With: Dr. Coleman (hospitalist) at 20:33 - agrees to admit. Dr. Canas (oncology) at 20:39 - discussed patient's history and results. Notified of patient's admission. Discharge - Discharge Plan Condition: Guarded Disposition: ADMITTED TO [facility] The documentation as recorded by the Kurtis beckham Erika accurately reflects the service I personally performed and the decisions made by , Naseem Ruth MD.
--- NOTE | 2016-10-26 21:02 | HP ---
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 She underwent her first round of chemotherapy ~2 weeks ago. She began having problems with constipation however over the past 2-3 days she has developed watery diarrhea occurring ~every 2 hours with episodes of fecal incontinence. She has also had N/V associated with eating or drinking anything, but without overt nausea. She denies subjective F/C, black/blood stools/emesis, chest pain, SOB, sweats, B/U/F of urine, headache, earache, cough , congestion, open wound, or other issues. PMedHx small cell lung CA metastatic to liver HTN Ambulatory Orders Acetaminophen TAB* [Tylenol TAB*] 650 mg PO Q6HR PRN 10/08/16 Metoprolol Tartrate TAB* [Lopressor TAB*] 25 mg PO BID 10/08/16 amLODIPine TAB* [Norvasc 5 mg TAB*] 5 mg PO DAILY 10/08/16 Ondansetron HCl [Zofran 4 MG TAB] 4 mg PO Q6HR PRN #30 tab 10/09/16 Sennosides-Docusate Sodium [Hm Stool Softener/Laxativ 8.6-50 mg] 1 tab PO DAILY PRN #30 tab 10/09/16 oxyCODONE TAB* [Roxycodone TAB 5 mg*] 5 mg PO Q4H PRN #30 tab MDD 6 tabs Allergies No Known Allergies Allergy (Verified 10/08/16 07:35) PSurgHx tonsillectomy SocHx: former smoker quit 6 months ago w/ >50PYHX; lives with her ; full code status FamHx: unknown; adopted ROS: as above, otherwise reviewed and all were negative Constitutional: NAD, normally developed, thin white female vitals: Vital Signs Temp 37.9 C 10/26/16 22:26 Pulse 96 10/26/16 22:00 Resp 18 10/26/16 22:00 BP 109/50 10/26/16 22:00 Pulse Ox 94 10/26/16 22:00 Intake & Output 10/25/16 10/26/16 10/26/16 23:59 11:59 23:59 Intake Total 1000 Balance 1000 Weight 44.452 kg Intake: IV Fluids 1000 HEENM: atraumatic; sclera/conjunctiva: non-icteric/clear; hearing: clinically intact; oropharynx: clear, mucosa tacky Neck: soft tissue: no nuchal rigidity; thyroid: normal Pulmonary: clear to auscultation bilaterally, good aeration, no accessory muscle use CV: RR/RR, normal S1S2, no carotid bruit, no jugular venous distention, 2+ B DP/ PT, no edema Abdominal: soft, mildly distended, diffusely mildly tender, no rebound/guarding/ rigidity, normoactive bowel sounds, no hepatosplenomegaly or masses, no costovertebral angle tenderness Musculoskeletal: general: grossly intact; gait: stable Integumental: normal appearance and texture of exposed skin Psychiatric orientation: AA&O to PPS affect: calm mood: cooperative eye contact: good content: reliable responses: timely insight: good Testing: Lab Results 10/26/16 10/26/16 10/26/16 Range/Units 19:45 19:45 19:45 WBC 0.5 L (3.5-10.8) 10^3/ul RBC 4.16 (4.0-5.4) 10^6/ul Hgb 12.3 (12.0-16.0) g/dl Hct 37 (35-47) % MCV 89 (80-97) fL MCH 30 (27-31) pg MCHC 33 (31-36) g/dl RDW 15 (10.5-15) % Plt Count 75 L D (150-450) 10^3/ul MPV 8 (7.4-10.4) um3 Neut % (Auto) 1.8 L (38-83) % Lymph % (Auto) 77.0 H (25-47) % [place] % (Auto) 11.5 H (1-9) % Eos % (Auto) 8.8 H (0-6) % Baso % (Auto) 0.9 (0-2) % Absolute Neuts (auto) 0 L* (1.5-7.7) 10^3/ul Absolute Lymphs (auto) 0.4 L (1.0-4.8) 10^3/ul Absolute Monos (auto) 0.1 (0-0.8) 10^3/ul Absolute Eos (auto) 0 (0-0.6) 10^3/ul Absolute Basos (auto) 0 (0-0.2) 10^3/ul Absolute Nucleated RBC 0 10^3/ul Nucleated RBC % 0 Hem Pathologist Commnt Pending Sodium 135 (133-145) mmol/L Potassium 3.6 (3.5-5.0) mmol/L Chloride 102 (101-111) mmol/L Carbon Dioxide 24 (22-32) mmol/L Anion Gap 9 (2-11) mmol/L BUN 15 (6-24) mg/dL Creatinine 0.65 (0.51-0.95) mg/dL Est GFR ( Amer) 115.6 (>60) Est GFR (Non-Af Amer) 89.9 (>60) BUN/Creatinine Ratio 23.1 H (8-20) Glucose 106 H (70-100) mg/dL Lactic Acid 1.0 (0.5-2.0) mmol/L Calcium 9.1 (8.6-10.3) mg/dL Magnesium 1.8 L (1.9-2.7) mg/dL Total Bilirubin 1.10 H (0.2-1.0) mg/dL AST 42 H (13-39) U/L ALT 48 (7-52) U/L Alkaline Phosphatase 466 H (34-104) U/L Troponin I 0.01 (<0.04) ng/mL Total Protein 6.4 (6.4-8.9) g/dL Albumin 3.2 (3.2-5.2) g/dL Globulin 3.2 (2-4) g/dL Albumin/Globulin Ratio 1.0 (1-3) ECG, personally reviewed: sinus tackycardia rate 106, no ischemia CXR, personally reviewed: IMPRESSION: HYPERINFLATION, CONSISTENT WITH COPD. NO ACTIVE CARDIOPULMONARY DISEASE. 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
[2016-10-26] MEDS ORDERED: Albuterol 2.5 MG/3 ML NEB.SOL* (0.083%) INH PRN (23:20)
[2016-10-26] MEDS ORDERED: Ondansetron INJ* 2 MG/ML VIAL IV PRN (23:20)
[2016-10-26] MEDS ORDERED: Acetaminophen TAB* 325 MG PO PRN (23:20)
[2016-10-26] MEDS ORDERED: Melatonin (NF) 3 MG TAB PO PRN (23:20)
[2016-10-26] MEDS: NS 0.9% 1000 ML* 1,000 ML IV SCH (23:54)
[2016-10-26] MEDS: metroNIDAZOLE IV 500 MG/100ML* 500 MG/100 ML BAG IVPB SCH (23:54)
[2016-10-27 04:43] LABS: Urine Bilirubin Negative (Negative); Urine Glucose Negative (Negative); Urine Nitrite Negative (Negative)
[2016-10-27 05:56] LABS: EGFR African American 156.4 (>60); EGFR Non-African American 121.6 (>60); Potassium 3.2 mmol/L (3.5-5.0)
[2016-10-27] MEDS: Cefepime(*) 2 GM in NS 0.9% 50 ML* 50 ML IVPB SCH ×3 (05:56→21:32)
[2016-10-27] MEDS: Omeprazole CAP* 20 MG PO SCH (05:56)
[2016-10-27 05:58] LABS: Hematocrit 31 % (35-47); Hemoglobin 10.3 g/dl (12.0-16.0); Mean Corpuscular HGB Conc 33 g/dl (31-36); Mean Corpuscular Hemoglobin 30 pg (27-31); Mean Corpuscular Volume 90 fL (80-97); Mean Platelet Volume 9 um3 (7.4-10.4); Red Blood Count 3.46 10^6/ul (4.0-5.4); Red Cell Distribution Width 15 % (10.5-15)
[2016-10-27 05:59] LABS: Add Diff/Slide Review? Manual Diff Added; Comments Flag Yes
[2016-10-27 06:00] LABS: White Blood Count 0.4 10^3/ul (3.5-10.8)
[2016-10-27] MEDS ORDERED: Heparin VIAL(*) 5000 UNITS/ML VIAL (FIVE THOUSAND) SUBCUT SCH (06:00)
--- NOTE | 2016-10-27 06:09 | PN ---
Progress Note - Progress Note Note: Platelets decreased to 50 from 75 this AM. Will D/C SQ heparin and use SCDs only for DVT prophylaxis.
[2016-10-27 06:22] LABS: Hypochromasia 1+; Neutrophil % 1 % (38-83)
[2016-10-27] MEDS: Mometasone/Formoter 200/5 MDI INH SCH ×2 (07:36→19:36)
[2016-10-27] MEDS: Tiotropium CAP.INH* CAP.INH/18 MCG INH SCH (07:43)
[2016-10-27] MEDS ORDERED: Spiriva Inhaler DEVICE* 1 EACH DEVICE ONE (09:00)
[2016-10-27] MEDS: metroNIDAZOLE IV 500 MG/100ML* 500 MG/100 ML BAG IVPB SCH ×3 (10:14→23:48)
--- NOTE | 2016-10-27 10:39 | PN ---
Progress Note - Progress Note SOAP: Subjective: []Better today. Chemotherapy went well and then developed diarrhea and nausea for 2 days, more fatigue. No fevers that she could tell. Presented to ER, fever and ANC 0. Abdominal pain has improved since starting chemotherapy. Acetaminophen (Tylenol Tab*) 650 mg PO Q6H PRN PRN Reason: FEVER/PAIN Albuterol (Ventolin 2.5 Mg/3 Ml Neb.Lupe*) 2.5 mg INH Q2H PRN PRN Reason: SOB/WHEEZING Cefepime HCl 2 gm/ Sodium (Chloride) 50 mls @ 100 mls/hr IVPB Q8H COUNT INCLUDES THE [facility] Last Admin: 10/27/16 05:56 Dose: 100 mls/hr Sodium Chloride (Ns 0.9% 1000 Ml*) 1,000 mls @ 125 mls/hr IV PER RATE COUNT INCLUDES THE [facility] Last Admin: 10/26/16 23:54 Dose: 125 mls/hr Metronidazole/Sodium Chloride (Flagyl 500 Mg Ivpb*) 500 mg in 100 mls @ 100 mls /hr IVPB Q8H COUNT INCLUDES THE [facility] Last Admin: 10/27/16 10:14 Dose: 100 mls/hr Melatonin (Melatonin (Nf)) 3 mg PO BEDTIME PRN; Protocol PRN Reason: Sleep Mometasone Furoate/Formoterol Fumar (Dulera 200/5 Mdi*) 2 puff INH BID COUNT INCLUDES THE [facility] Last Admin: 10/27/16 07:36 Dose: 2 puff Morphine Sulfate (Morphine Inj (Syringe)*) 2 mg IV Q20M PRN PRN Reason: PAIN Omeprazole (Prilosec Cap*) 20 mg PO DAILY@0600 COUNT INCLUDES THE [facility] Last Admin: 10/27/16 05:56 Dose: 20 mg Ondansetron HCl (Zofran Inj*) 4 mg IV Q6H PRN PRN Reason: NAUSEA Tiotropium [place] (Spiriva Cap.Inh*) 1 cap INH DAILY COUNT INCLUDES THE [facility] Last Admin: 10/27/16 07:43 Dose: 1 cap Objective: [] Vital Signs Temp Pulse Resp BP Pulse Ox 99.3 F 109 16 132/51 92 10/27/16 07:30 10/27/16 07:46 10/27/16 07:46 10/27/16 07:30 10/27/16 07:46 HEENT - Mucosa dry, no lesions decreased BS, no wheezing. RRR S1S2 No tenderness on abdominal exam and cannot palpate liver edge. Blood Cx: + 2/4 bottle gram neg bacilli. Assessment: []70 year old SSLC, cycle 1 of Carbo/Etoposide with neutropenic fever and bacteremia. Hemodynamically stable on Cefepime and IVF. Plan: []1. Continue current ABX and follow cultures 2. Decreasd K, check Mg and give Mg 2 gm IV x 1. K-dure 40 sherly po x 1 3. Hold BP meds 4. Sever COPD but no distress at this time.
[2016-10-27] MEDS ORDERED: Potassium Chlor TAB* 20 MEQ TAB.ER PO ONE ×2 (10:40→17:00)
[2016-10-27] MEDS: NS 0.9% 1000 ML* 1,000 ML IV SCH ×2 (12:09→22:34)
[2016-10-28] MEDS: Cefepime(*) 2 GM in NS 0.9% 50 ML* 50 ML IVPB SCH ×3 (05:14→21:49)
[2016-10-28] MEDS: Omeprazole CAP* 20 MG PO SCH (05:15)
[2016-10-28] MEDS: Tiotropium CAP.INH* CAP.INH/18 MCG INH SCH (07:34)
[2016-10-28] MEDS: Mometasone/Formoter 200/5 MDI INH SCH ×2 (07:35→19:34)
[2016-10-28] MEDS: metroNIDAZOLE IV 500 MG/100ML* 500 MG/100 ML BAG IVPB SCH (07:53)
[2016-10-28 09:00] LABS: Comments Flag Yes; Hematocrit 36 % (35-47); Mean Corpuscular HGB Conc 33 g/dl (31-36); Mean Corpuscular Hemoglobin 30 pg (27-31); Mean Corpuscular Volume 90 fL (80-97); Mean Platelet Volume 8 um3 (7.4-10.4); Red Blood Count 4.03 10^6/ul (4.0-5.4); Red Cell Distribution Width 16 % (10.5-15)
[2016-10-28 09:01] LABS: White Blood Count 1.3 10^3/ul (3.5-10.8)
[2016-10-28 09:19] LABS: BUN/Creatinine Ratio 11.1 (8-20); Calcium 8.7 mg/dL (8.6-10.3); EGFR African American 143.1 (>60); EGFR Non-African American 111.3 (>60); Globulin 3.3 g/dL (2-4); Potassium 3.1 mmol/L (3.5-5.0); Total Bilirubin 0.9 mg/dL (0.2-1.0); Total Protein 6.3 g/dL (6.4-8.9)
[2016-10-28] MEDS: KCL 20 MEQ/100 ML IVPREMIX* 20 MEQ/100 ML BAG IV SCH ×2 (09:55→14:26)
[2016-10-28] MEDS: NS 0.9% 1000 ML* 1,000 ML IV SCH ×2 (09:55→23:20)
[2016-10-29] MEDS: Omeprazole CAP* 20 MG PO SCH (05:36)
[2016-10-29] MEDS: Cefepime(*) 2 GM in NS 0.9% 50 ML* 50 ML IVPB SCH ×3 (05:38→22:17)
[2016-10-29 06:09] LABS: Hematocrit 32 % (35-47); Hemoglobin 10.8 g/dl (12.0-16.0); Mean Corpuscular HGB Conc 34 g/dl (31-36); Mean Corpuscular Hemoglobin 30 pg (27-31); Mean Corpuscular Volume 89 fL (80-97); Mean Platelet Volume 9 um3 (7.4-10.4); Red Blood Count 3.59 10^6/ul (4.0-5.4); Red Cell Distribution Width 15 % (10.5-15); White Blood Count 2.7 10^3/ul (3.5-10.8)
[2016-10-29 06:12] LABS: Add Diff/Slide Review? Slide Review Added; Comments Flag Yes
[2016-10-29 06:24] LABS: BUN/Creatinine Ratio 6.7 (8-20); Calcium 8.7 mg/dL (8.6-10.3); EGFR African American 176.6 (>60); EGFR Non-African American 137.4 (>60); Magnesium 1.5 mg/dL (1.9-2.7); Potassium 3.3 mmol/L (3.5-5.0)
[2016-10-29] MEDS: Tiotropium CAP.INH* CAP.INH/18 MCG INH SCH (08:29)
[2016-10-29] MEDS: Mometasone/Formoter 200/5 MDI INH SCH ×2 (08:30→19:33)
--- NOTE | 2016-10-29 11:00 | PN ---
Progress Note - Progress Note SOAP: Subjective: feels much better today. wants to go home. diarrhea much better. no abd pain. Objective: Vital Signs Temp Pulse Resp BP Pulse Ox 97.8 F 110 18 140/66 96 10/29/16 07:19 10/29/16 08:33 10/29/16 08:33 10/29/16 07:19 10/29/16 08:33 sitting up in bed in nad perr eomi op poor dentition distant bs tachy abdomen much smaller, liver much smaller, +bs no le edema A+O x 3, nonfocal neurological exam Laboratory Results - last 24 hr 10/29/16 10/29/16 05:48 05:49 WBC 2.7 L RBC 3.59 L Hgb 10.8 L Hct 32 L MCV 89 MCH 30 MCHC 34 RDW 15 Plt Count 76 L MPV 9 Neut % (Auto) 38.8 Lymph % (Auto) 40.5 [place] % (Auto) 19.8 H Eos % (Auto) 0.7 Baso % (Auto) 0.2 Absolute Neuts (auto) 1.0 L Absolute Lymphs (auto) 1.1 Absolute Monos (auto) 0.5 Absolute Eos (auto) 0 Absolute Basos (auto) 0 Absolute Nucleated RBC 0 Nucleated RBC % 0.1 Sodium 137 Potassium 3.3 L Chloride 107 Carbon Dioxide 25 Anion Gap 5 BUN 3 L Creatinine 0.45 L Est GFR ( Amer) 176.6 Est GFR (Non-Af Amer) 137.4 BUN/Creatinine Ratio 6.7 L Glucose 84 Calcium 8.7 Magnesium 1.5 L Acetaminophen (Tylenol Tab*) 650 mg PO Q6H PRN PRN Reason: FEVER/PAIN Albuterol (Ventolin 2.5 Mg/3 Ml Neb.Lupe*) 2.5 mg INH Q2H PRN PRN Reason: SOB/WHEEZING Cefepime HCl 2 gm/ Sodium (Chloride) 50 mls @ 100 mls/hr IVPB Q8H [facility] Last Admin: 10/29/16 05:38 Dose: 100 mls/hr Sodium Chloride (Ns 0.9% 1000 Ml*) 1,000 mls @ 75 mls/hr IV PER RATE [facility] Last Admin: 10/28/16 23:20 Dose: 75 mls/hr Magnesium Sulfate (Magnesium Sulf 4 Gm/100 Ml Iv*) 4,000 mg in 100 mls @ 33.333 mls/hr IVPB ONCE ONE Stop: 10/29/16 14:29 Melatonin (Melatonin (Nf)) 3 mg PO BEDTIME PRN; Protocol PRN Reason: Sleep Mometasone Furoate/Formoterol Fumar (Dulera 200/5 Mdi*) 2 puff INH BID [facility] Last Admin: 10/29/16 08:30 Dose: 2 puff Morphine Sulfate (Morphine Inj (Syringe)*) 2 mg IV Q20M PRN PRN Reason: PAIN Omeprazole (Prilosec Cap*) 20 mg PO DAILY@0600 [facility] Last Admin: 10/29/16 05:36 Dose: 20 mg Ondansetron HCl (Zofran Inj*) 4 mg IV Q6H PRN PRN Reason: NAUSEA Potassium Chloride (Klor Con Er Tab*) 40 meq PO DAILY [facility] Tiotropium [place] (Spiriva Cap.Inh*) 1 cap INH DAILY [facility] Last Admin: 10/29/16 08:29 Dose: 1 cap Assessment: 70 yo F w extensive stage small cell lung cancer on palliative carbo/etoposide sp cycle 1 presenting with diarrhea and neutropenic fever and found to have ecoli bacteremia with source likely being gut translocation. Plan: -cont IV abx for one more day -will switch to PO tomorrow for 2 week course, particularly given further chemo next week -will dose reduce 20% for cycle 2 hypokalemia and hypomagnesemia: likely related to diarrrhea will replete today pancytopenia: chemotherapy induced will add DVT prophylaxis today as platelet count improving full code
[2016-10-29] MEDS ORDERED: Magnesium Sulf 4 GM/100 ML IV* 4,000 MG/100 ML BAG IVPB ONE (11:30)
[2016-10-29] MEDS: Enoxaparin(*) 30 MG/0.3 ML SYR SUBCUT SCH (12:28)
[2016-10-29] MEDS: Potassium Chlor TAB* 20 MEQ TAB.ER PO SCH (12:29)
[2016-10-29] MEDS: NS 0.9% 1000 ML* 1,000 ML IV SCH (15:29)
[2016-10-30] MEDS: Omeprazole CAP* 20 MG PO SCH (05:29)
[2016-10-30 05:35] LABS: Hematocrit 32 % (35-47); Hemoglobin 10.5 g/dl (12.0-16.0); Mean Corpuscular HGB Conc 33 g/dl (31-36); Mean Corpuscular Hemoglobin 30 pg (27-31); Mean Corpuscular Volume 90 fL (80-97); Mean Platelet Volume 9 um3 (7.4-10.4); Red Blood Count 3.54 10^6/ul (4.0-5.4); Red Cell Distribution Width 16 % (10.5-15); White Blood Count 4.3 10^3/ul (3.5-10.8)
[2016-10-30] MEDS: NS 0.9% 1000 ML* 1,000 ML IV SCH (05:35)
[2016-10-30] MEDS: Cefepime(*) 2 GM in NS 0.9% 50 ML* 50 ML IVPB SCH (05:35)
[2016-10-30 05:38] LABS: Add Diff/Slide Review? Slide Review Added; Comments Flag Yes
[2016-10-30 05:51] LABS: BUN/Creatinine Ratio 6.4 (8-20); Calcium 8.3 mg/dL (8.6-10.3); EGFR Non-African American 130.6 (>60); Potassium 3.6 mmol/L (3.5-5.0)
[2016-10-30] MEDS: Potassium Chlor TAB* 20 MEQ TAB.ER PO SCH (07:30)
[2016-10-30 07:41] VITALS: BP 149/65
[2016-10-30] MEDS: Mometasone/Formoter 200/5 MDI INH SCH (08:13)
[2016-10-30] MEDS: Tiotropium CAP.INH* CAP.INH/18 MCG INH SCH (08:13)
[2016-10-30] MEDS: Enoxaparin(*) 30 MG/0.3 ML SYR SUBCUT SCH (11:37)
--- NOTE | 2016-10-31 02:51 | DS ---
DISCHARGE SUMMARY: DATE OF ADMISSION: 10/26/16 DATE OF DISCHARGE: 10/30/16 ATTENDING PROVIDER: Dr. Canas (DICTATED BY [facility]) PRINCIPAL DIAGNOSIS: Abdominal cramping. HOSPITAL COURSE: Briefly, Ms. Carmen is a 70-year-old white female with small cell lung cancer, metastatic to the liver, which she underwent her first round of chemotherapy approximately 2 weeks ago and developed watery diarrhea, approximately every 2 hours with episodes of fecal incontinence, and was admitted for evaluation by Dr. Coleman. In addition, she did have neutropenic fever, most likely the source was a possible colitis. She was pancultured and placed on IV cefepime and found to have E. coli bacteremia in addition to watery diarrhea. After the antibiotics and aggressive fluids were started, the patient did improve significantly and the diarrhea has since stopped. C. difficile was negative by PCR. She also became hypokalemic, which was repleted and will be sent home on oral potassium as well. She did have a history of hypertension in the past and her antihypertensives were held during her hospital stay and will be sent home only on her metoprolol and Norvasc will be held. She was prophylaxed with heparin subcutaneous for DVT prophylaxis and she remained a full code during her hospital stay. Today, she is feeling well and she is afebrile and blood pressure is stable. She will be sent home on ciprofloxacin 500 mg p.o. q.12 hours if the E. coli bacteremia is sensitive to that as well. She will follow up in the office in approximately one week with a provider at [facility] and she will complete her course of antibiotics for a total of [address] Good's note also recommends that she has a 20% dose reduction with her chemotherapy to alleviate a neutropenic fever on her next cycle as well. [facility] [id number]/[facility] #: [id number] MTDD
== END 2016-10-30 11:55 | disposition home or self-care (01) | DRG 809 ==
LOC: ED 19:04 → MED 20:42
PROVIDERS: ADMIT Hospitalist; ATTEND Internal Medicine Hematology & Oncology
DX: D70.9 Neutropenia, unspecified (principal); C34.90 Malignant neoplasm of unspecified part of unspecified bronchus or lung; R64 Cachexia; C78.7 Secondary malignant neoplasm of liver and intrahepatic bile duct; J44.9 Chronic obstructive pulmonary disease, unspecified; R78.81 Bacteremia; R50.81 Fever presenting with conditions classified elsewhere; E83.42 Hypomagnesemia; Z68.1 Body mass index [BMI] 19.9 or less, adult; I10 Essential (primary) hypertension; Z87.891 Personal history of nicotine dependence; R15.9 Full incontinence of feces; K52.9 Noninfective gastroenteritis and colitis, unspecified; E87.6 Hypokalemia; B96.20 Unspecified Escherichia coli [E. coli] as the cause of diseases classified elsewhere; D61.810 Antineoplastic chemotherapy induced pancytopenia; T45.1X5A Adverse effect of antineoplastic and immunosuppressive drugs, initial encounter
CPT/HCPCS: 36415; 71020; 80048; 80053; 81003; 83605; 83735; 84484; 85025; 85060; 85730; 87040; 87077; 87186; 87205; 87493; 93005; 94640; 99232; 99238; A9270-GY; J0692; J1644; J1650; J2405; J3480

== ENCOUNTER → 2016-11-25 06:36 | Day surgery (SDC) | payer MEDICARE, BC ==
[~2016-11-25 06:36] MED LIST: Buffered Lidocaine 0.9% SYRIN* 5 ML/SYR SYRINGE INTRADERM ONE; Buffered Lidocaine 0.9% SYRIN* 5 ML/SYR SYRINGE ONE; Dexamethasone IV* 4 MG/ML 1 ML (4 MG) ONE; Famotidine IV* 10 MG/ML 2 ML (20 mg) IV ONE; Famotidine IV* 10 MG/ML 2 ML (20 mg) ONE; KETAMINE HCL* 50 MG/ML 10 ML VIAL ONE; Lidocaine 1% INJ* 10 MG/ML 30 ML SDV ONE; Lidocaine 2% PF * 5 ML VIAL ONE; Midazolam* 1 MG/ML 5 ML VIAL (5 MG) ONE; Morphine INJ* 2 MG/ML 1 ML SYRINGE IV PRN; Ondansetron INJ* 2 MG/ML VIAL ONE; PROCHLORPERAZINE INJ 5 MG/ML 2 ML VIAL IV PRN; PROCHLORPERAZINE INJ 5 MG/ML 2 ML VIAL ONE; Propofol* 10 MG/ML 20 ML BTL IV PUSH ONE; ceFAZolin 2 GM PREMIX(*) 2 GM/50 ML BAG IVPB ONE; fentaNYL* 50 MCG/ML 2 ML VIAL (100 MCG VIAL) IV PRN; fentaNYL* 50 MCG/ML 2 ML VIAL (100 MCG VIAL) ONE; oxyCODONE/Acetamin 5/325 MG* TAB PO PRN
--- NOTE | 2016-11-25 09:16 | RAD ---
INDICATION: chest port placement COMPARISONS: None relevant TECHNIQUE: Fluoroscopy was provided for a pain management procedure. Total fluoroscopy time is: 21.6 seconds FINDINGS: Spot images demonstrate a left-sided chest port from a subclavian approach with the tip overlying the superior vena cava. IMPRESSION: FLUOROSCOPY WAS PROVIDED FOR A VASCULAR ACCESS PROCEDURE CPT II Codes: 6045F
[2016-11-25 10:37] VITALS: BP 132/51
--- NOTE | 2016-11-26 13:32 | OP ---
CC: Kandice Good MD * DATE OF OPERATION: 11/25/16 - [facility] DATE OF : 43 SURGEON: Keith Giles MD ELECTRONIC OPERATOR: None. ANESTHESIOLOGIST: Dr. Peterson. ANESTHESIA: Local MAC. PRE-OP DIAGNOSIS: Lung carcinoma. POST-OP DIAGNOSIS: Lung carcinoma. OPERATIVE PROCEDURE: PowerPort placement, left subclavian. ESTIMATED BLOOD LOSS: 5 mL. IV FLUIDS: Crystalloid. SPECIMENS: None. DRAINS: None. COMPLICATIONS: None. COUNT: The instrument, needle, and sponge counts were correct. DESCRIPTION OF PROCEDURE: The patient was brought to the operating room and placed on the table supine. Sequential compression devices were placed on both lower extremities. Intravenous sedation was administered. She was positioned and padded appropriately. She received appropriate intravenous antibiotics and she was prepped and draped in the usual sterile fashion and a time-out was performed. Local anesthetic was infiltrated for a left subclavian approach. The left subclavian vein was cannulated on the first pass with an 18-gauge needle and a J -wire was placed into the superior vena cava and its position confirmed under fluoroscopy. Additional anesthetic was infiltrated in the left upper chest and a transverse incision was created through the subcutaneous tissues and hemostasis achieved with electrocautery. Subcutaneous pocket was created. Counter-incision was made at the guidewire insertion site and a 6-[place] PowerPort catheter was back tunneled to the pocket and then the peel-away sheath and dilator were advanced over the guidewire into the superior vena cava under fluoroscopic guidance. The dilator and guidewire were removed and the catheter was advanced to 23 cm. The tip of the catheter was visualized in the superior vena cava near the cavoatrial junction. The catheter was cut and attached to the port which was placed into the subcutaneous pocket and secured with a single 2-0 Surgipro suture. The port was accessed. It cruz and flushed easily. The pocket was closed with 3-0 Polysorb for the subcutaneous tissues, 4 -0 Monocryl for the skin at both sites. Steri-Strips were applied. The access needle was left in place and Tegaderm dressing was applied. The patient was transferred to [facility]. [id number]/[facility] #: [id number] MTDD
== END | disposition home or self-care (01) ==
LOC: OR 06:36
PROVIDERS: ATTEND Surgery
DX: C34.92 Malignant neoplasm of unspecified part of left bronchus or lung (principal); J44.9 Chronic obstructive pulmonary disease, unspecified; I10 Essential (primary) hypertension; Z87.891 Personal history of nicotine dependence
CPT/HCPCS: 71010; C1788; J0690; J0780; J1100; J1642; J2001; J2250; J2405; J2704; J3010

== ENCOUNTER 2017-05-24 20:39 | Emergency (ER) | payer MEDICARE, BC ==
--- NOTE | 2017-05-24 21:02 | RAD ---
Indication: Facial injury. CT brain without IV contrast. The structures are midline. No midline shift is noted. There are several hypodense masses one subcortical right frontal lobe and right deep white matter frontal lobe as well as periventricular white matter in the left parietal there may also be an additional mass in the left temporal lobe. Findings are consistent with metastatic lesions prominent extra-axial spaces are noted. Air-fluid level is noted in the right maxillary sinus. IMPRESSION: Hyperdense lesions in subcortical right frontal lobe, right frontal lobe white matter as well as the left periventricular white matter as well as in the left temporal lobe. Findings are suspicious for metastatic disease. Findings were discussed with Dr. Fitch at 8:58 PM.
[2017-05-24] MEDS ORDERED: Dexamethasone IV* 4 MG/ML 5 ML VIAL (20 MG) IVPB ONE (21:10)
[2017-05-24] MEDS ORDERED: levETIRAcetam IV* 1,000 MG in NS 0.9% 100 ML* 100 ML IVPB ONE (21:11)
[2017-05-24] MEDS ORDERED: LORazepam INJ* 2 MG/ML 1 ML VIAL IV PUSH ONE (21:16)
[2017-05-24 21:35] LABS: ABS Basophils 0.1 10^3/ul (0-0.2); ABS Eosinophils 0.2 10^3/ul (0-0.6); ABS Lymphocytes 1.6 10^3/ul (1.0-4.8); ABS Monocytes 0.4 10^3/ul (0-0.8); ABS Neutrophils 3.1 10^3/ul (1.5-7.7); ABS Nucleated RBC 0.01 10^3/ul; Eosinophil % 2.9 % (0-6); Hematocrit 44 % (35-47); Hemoglobin 14.6 g/dl (12.0-16.0); Lymphocyte % 30.2 % (25-47); Mean Corpuscular HGB Conc 33 g/dl (31-36); Mean Corpuscular Hemoglobin 31 pg (27-31); Mean Corpuscular Volume 91 fL (80-97); Mean Platelet Volume 7 um3 (7.4-10.4); Nucleated Red Blood Cells % 0.1; Platelet Count 284 10^3/ul (150-450); Red Blood Count 4.79 10^6/ul (4.0-5.4); Red Cell Distribution Width 14 % (10.5-15); White Blood Count 5.3 10^3/ul (3.5-10.8)
--- NOTE | 2017-05-24 21:36 | ED ---
Marah Fields Thomas, scribed for Megan Fitch MD on 05/24/17 at 2053 . Neurological HPI - HPI Summary HPI Summary: The patient is a 71 year old female brought in by ambulance from her home. Today at about 19:30, the patient was in the bathtub and talking on the phone with her grandson when she dropped the phone (held in her right hand), she became unable to talk normally, she had a facial droop, and she had involuntary movements on the left side of her face. She was able to walk 25 feet to her bathroom where her was located. At this point the patients called EMS. In the emergency room, the patient is alert and oriented x 3. Six months ago, the patient was diagnosed with lung cancer. There are metastases to her liver. Her oncologist is Dr. Good. The patient has not had chemotherapy since two months ago because she was told that her cancer is in remission. She has history of hypertension and she is on an unspecified blood thinner. At baseline, the patient is able to walk. She does not have these involuntary facial movements at her baseline. The patient has never had a CT scan of her head. - History of Current Complaint Stated Complaint: POSSIBLE STROKE Time Seen by Provider: 05/24/17 20:42 Hx Obtained From: Patient Onset/Duration: Sudden Onset, Started hours ago - today at 19:30, Still Present Timing: Constant Current Severity: Moderate Character: Other: - Slurred speech Aggravating: Nothing Alleviating: Nothing Associated Signs and Symptoms: Positive: Impaired Speech. Negative: Fever Related Hx: Anticoagulants - unspecified - Additional Pertinent History Primary Care Physician: KIMBER - Allergy/Home Medications Allergies/Adverse Reactions: Allergies Allergy/AdvReac Type Severity Reaction Status Date / Time No Known Allergies Allergy Verified 12/29/16 10:32 PMH/Surg Hx/FS Hx/Imm Hx Previously Healthy: No Endocrine/Hematology History: Denies: Hx Diabetes, Hx Thyroid Disease Cardiovascular History: Reports: Hx Hypertension Respiratory History: Reports: Other Respiratory Problems/Disorders - lung cancer Denies: Hx Asthma, Hx Chronic Obstructive Pulmonary Disease (COPD) GI History: Reports: Hx Gastroesophageal Reflux Disease - on med, Other GI Disorders - refluxm undiagnosed Denies: Hx Ulcer History: Denies: Hx Renal Disease Sensory History: Reports: Hx Contacts or Glasses Denies: Hx Hearing Aid Opthamlomology History: Reports: Hx Contacts or Glasses - Cancer History Cancer Type, Location and Year: Lung CA, mets to liver Hx Chemotherapy: Yes - reports had 1st round 4 weeks ago - Surgical History Surgery Procedure, Year, and Place: TONSILLECTOMY, POWER PORT INSERTION Hx Anesthesia Reactions: No Infectious Disease History: Denies: Hx Hepatitis, Hx Human Immunodeficiency Virus (HIV), History Other Infectious Disease - Family History Known Family History: Positive: Unknown - Patient is adopted, Hypertension - Social History Lives: With Family Alcohol Use: None Alcohol Amount: maybe 4 drinks per year Hx Substance Use: No Substance Use Type: Reports: None Hx Tobacco Use: Yes - quit in May, smoked 1ppd x 50 yrs Smoking Status (MU): Former Smoker Type: Cigarettes Amount Used/How Often: 1 1/2 ppd for 50 years Review of Systems Negative: Fever Neurological: Other - Facial droop, aphasia, involuntary facial movements All Other Systems Reviewed And Are Negative: Yes Physical Exam - Summary Physical Exam Summary: VITAL SIGNS: Reviewed. GENERAL: Patient is a well-developed and nourished female who is lying comfortable in the stretcher. Patient is not in any acute respiratory distress. HEAD AND FACE: No signs of trauma. No ecchymosis, hematomas or skull depressions. No sinus tenderness. EYES: PERRLA, EOMI x 2, No injected conjunctiva, no nystagmus. EARS: Hearing grossly intact. Ear canals and tympanic membranes are within normal limits. MOUTH: Oropharynx within normal limits. NECK: Supple, trachea is midline, no adenopathy, no JVD, no carotid bruit, no c- spine tenderness, neck with full ROM. CHEST: Symmetric, no tenderness at palpation LUNGS: Clear to auscultation bilaterally. No wheezing or crackles. CVS: Regular rate and rhythm, S1 and S2 present, no murmurs or gallops appreciated. ABDOMEN: Soft, non-tender. No signs of distention. No rebound no guarding, and no masses palpated. Bowel sounds are normal. EXTREMITIES: FROM in all major joints, no edema, no cyanosis or clubbing. NEURO: Alert and oriented x 3. The patient is aphasic, she has a left facial droop, and she has focal seizure to the left side of her face. SKIN: Dry and warm Triage Information Reviewed: Yes Vital Signs Reviewed: Yes Diagnostics - Laboratory Lab Statement: Any lab studies that have been ordered have been reviewed, and results considered in the medical decision making process. - CT CT Brain CT Interpretation: Positive (See Comments) - Hyperdense lesions in subcortical right frontal lobe, right frontal lobe white matter as well as the left periventricular white matter as well as in the left temporal lobe. Findings are suspicious for metastatic disease. Dr. Fitch has reviewed this report. CT Interpretation Completed By: Radiologist - EKG 21:14 Cardiac Rate: NL EKG Rhythm: Sinus Rhythm - at 69 BPM EKG Interpretation: Normal intervals. Normal axis. No ischemic changes. Course/Dx - Course Assessment/Plan: The patient is a 71 year old female brought in by ambulance from her home. Today at about 19:30, the patient was in the bathtub and talking on the phone with her grandson when she dropped the phone (held in her right hand), she became unable to talk normally, she had a facial droop, and she had involuntary movements on the left side of her face. She was able to walk 25 feet to her bathroom where her was located. At this point the patients called EMS. In the emergency room, the patient is alert and oriented x 3. Six months ago, the patient was diagnosed with lung cancer. There are metastases to her liver. Her oncologist is Dr. Good. The patient has not had chemotherapy since two months ago because she was told that her cancer is in remission. She has history of hypertension and she is on an unspecified blood thinner. At baseline, the patient is able to walk. She does not have these involuntary facial movements at her baseline. The patient has never had a CT scan of her head. The patient is aphasic, she has a left facial droop, and she has focal seizure to the left side of her face. The patient was given 1 mg of Ativan IV that was effective to relieve her focal seizure of the left side of her face. CT Scan reading of the brain did show multiple metastases to the brain. EKG was obtained and it shows sinus rhythm at 69 BPM, normal axis, normal intervals, and no ischemic changes. Per radiologist Dr. Rose, bleeding of the metastases cannot be ruled out. I spoke with Dr. Hartman, the neurologist at [facility], who did recommend that the patient be given Decadron, Keppra, and the patient be transferred to [facility]. 40 minutes of critical care time. - Diagnoses Provider Diagnoses: CVA (cerebral vascular accident), Focal seizure, Brain metastases During the Visit The Following Alert/Code Occurred: Code [place] - prior to arrival , at 20:35 - Physician Notifications Discussed Care Of Patient With: Bailey Rose Time Discussed With Above Provider: 21:00 Instructed by Provider To: Other - I spoke with Dr. Rose, radiology, who tells me there are multiple metastases to the brain. Per Dr. Rose, bleeding of the metastases cannot be ruled out. At 21:05, I spoke with Dr. Hartman, the neurologist at [facility], who did recommend that the patient be given Decadron, Keppra, and the patient be transferred to [facility]. - Critical Care Time Critical Care Time: 30-74 min - 40 minutes Discharge - Discharge Plan Condition: Critical Disposition: OTHER Discharge Disposition Comment: Patient will be transferred to [facility] by ambulance. Referrals: Kandice Good MD [Primary Care Provider] - The documentation as recorded by the Marah beckham Thomas accurately reflects the service I personally performed and the decisions made by me, Megan Fitch MD.
[2017-05-24 21:48] LABS: INR 0.82 (0.77-1.02)
[2017-05-24 21:49] LABS: EGFR Non-African American 65.7 (>60)
[2017-05-24 22:20] LABS: Urine Appearance Clear; Urine Blood 1+ (Negative); Urine Color Yellow; Urine Ketones Negative (Negative); Urine Protein Negative (Negative); Urine Specific Gravity 1.016 (1.010-1.030); Urine Urobilinogen Negative (Negative)
[2017-05-25 00:05] VITALS: BP 110/67
== END 2017-05-25 00:01 ==
LOC: ED 20:39
DX: I63.9 Cerebral infarction, unspecified (principal); G40.209 Localization-related (focal) (partial) symptomatic epilepsy and epileptic syndromes with complex partial seizures, not intractable, without status epilepticus; C34.90 Malignant neoplasm of unspecified part of unspecified bronchus or lung; C78.7 Secondary malignant neoplasm of liver and intrahepatic bile duct; C79.31 Secondary malignant neoplasm of brain; K21.9 Gastro-esophageal reflux disease without esophagitis; Z87.891 Personal history of nicotine dependence; I10 Essential (primary) hypertension; Z79.01 Long term (current) use of anticoagulants
CPT/HCPCS: 36415; 70450; 80053; 81003; 81015; 85025; 85610; 85730; 86850; 86900; 86901; 93005; 96360; 96374; 96375; 99285; J1100

== ENCOUNTER 2017-07-20 16:42 | Emergency (ER) | payer MEDICARE, BC ==
--- NOTE | 2017-07-20 17:29 | RAD ---
INDICATION: Left hip injury COMPARISON: None TECHNIQUE: An AP view of the pelvis and AP views of the hip in neutral and abducted position were obtained FINDINGS: Bones: There are no acute bony findings. Joint spaces: The hips articulate normally. The joint spaces are preserved. SI joints/symphysis: The SI joints and symphysis are intact. Other: None IMPRESSION: NO ACUTE PLAIN RADIOGRAPHIC FINDINGS
--- NOTE | 2017-07-20 18:10 | RAD ---
INDICATION: Left hip pain after falling 3 weeks ago. Negative plain radiographs COMPARISON: Radiograph left hip same date TECHNIQUE: Noncontrast axial source images were obtained from the iliac crests through the symphysis pubis. FINDINGS: There are no CT abnormalities of the bony pelvis. There is degenerative disc disease at L4-L5. The uterus and adnexa appear normal. No free fluid or adenopathy is seen. The noncontrast CT appearance of the bowel is unremarkable. The superficial soft tissues appear normal. The bladder appears normal. There are extensive aortic and iliac calcifications. IMPRESSION: NO ACUTE CT FINDINGS
--- NOTE | 2017-07-20 18:16 | RAD ---
INDICATION: Fall. Back pain. History of lung carcinoma with hepatic and BRONC BUSTER metastasis COMPARISON: CT chest/abdomen/pelvis June 03, 2017 TECHNIQUE: Noncontrast axial source images was performed from the thoracolumbar junction to the sacrum. Coronal and and sagittal reformatted images were generated. FINDINGS: Vertebrae: There is no fracture or acute focal bony lesion. There is a mottled appearance of the vertebrae which likely reflects bony metastasis. There is no pathologic fracture. Alignment: The lumbar vertebrae are normally aligned. Central Canal: There are no significant CT abnormalities of the central canal or foramina. MR imaging is a more sensitive method to evaluate the canal and foramina. Intervertebral disc spaces: Moderate degenerative disease L4-L5. Soft tissues: Extensive aortic calcifications. Other: None IMPRESSION: NO ACUTE CT FINDINGS. SPECT VERTEBRAL METASTASIS WITHOUT RADIOGRAPHIC CHANGE
[2017-07-20] MEDS ORDERED: oxyCODONE TAB* 5 MG TAB ONE (19:52)
[2017-07-20] MEDS ORDERED: oxyCODONE TAB* 5 MG TAB PO ONE (19:53)
--- NOTE | 2017-07-20 20:01 | ED ---
Marah Fields Thomas, scribed for Taras Cevallos MD on 07/20/17 at 1736 . Lower Extremity - HPI Summary HPI Summary: The patient is a 71 year old female complaining of constant hip pain aggravated by a fall that occurred last night. The pain initially started when she fell 3 weeks ago. She rates the pain as 3 out of 10. She is a cancer patient in hospice care. Patient was given morphine prior to her arrival. - History of Current Complaint Chief Complaint: EDHipPelvisInjury Stated Complaint: HIP INJURY Time Seen by Provider: 07/20/17 17:27 Hx Obtained From: Family/Drainman - The patient's Mechanism Of Injury: Fall From A Standing Position Onset of Pain: Hours Onset/Duration: Still Present Severity Initially: Moderate Pain Intensity: 4 Pain Scale Used: 0-10 Numeric Timing: Constant - Allergies/Home Medications Allergies/Adverse Reactions: Allergies Allergy/AdvReac Type Severity Reaction Status Date / Time No Known Allergies Allergy Verified 06/18/17 15:55 PMH/Surg Hx/FS Hx/Imm Hx Endocrine/Hematology History: Denies: Hx Diabetes, Hx Thyroid Disease Cardiovascular History: Reports: Hx Hypertension Denies: Hx Pacemaker/ICD Respiratory History: Reports: Other Respiratory Problems/Disorders - lung cancer Denies: Hx Asthma, Hx Chronic Obstructive Pulmonary Disease (COPD) GI History: Reports: Hx Gastroesophageal Reflux Disease - on med, Other GI Disorders - refluxm undiagnosed Denies: Hx Ulcer History: Denies: Hx Renal Disease Musculoskeletal History: Denies: Hx Osteoporosis Sensory History: Reports: Hx Contacts or Glasses Denies: Hx Hearing Aid Opthamlomology History: Reports: Hx Contacts or Glasses Psychiatric History: Denies: Hx Panic Disorder - Cancer History Cancer Type, Location and Year: Lung CA, mets to liver Hx Chemotherapy: Yes - reports had 1st round 4 weeks ago - Surgical History Surgery Procedure, Year, and Place: TONSILLECTOMY, POWER PORT INSERTION Hx Anesthesia Reactions: No Infectious Disease History: Yes Infectious Disease History: Denies: Hx Hepatitis, Hx Human Immunodeficiency Virus (HIV), History Other Infectious Disease, Traveled Outside the [place] in Last 30 Days - Family History Known Family History: Positive: Unknown - Patient is adopted, Hypertension - Social History Alcohol Use: None Alcohol Amount: maybe 4 drinks per year Hx Substance Use: No Substance Use Type: Reports: None Hx Tobacco Use: Yes - quit in May, smoked 1ppd x 50 yrs Smoking Status (MU): Former Smoker Type: Cigarettes Amount Used/How Often: 1 1/2 ppd for 50 years Review of Systems Negative: Epistaxis Musculoskeletal: Other - hip pain All Other Systems Reviewed And Are Negative: Yes Physical Exam - Summary Physical Exam Summary: Appearance: The patient is well-nourished in no acute distress and in no acute pain. Patient grimaces from time to time but I cannot reproduce the pain. Skin: The skin is warm and dry and skin color reflects adequate perfusion. HEENT: ~The head is normocephalic and atraumatic. The pupils are equal and reactive. The conjunctivae are clear and without drainage. ~Nares are patent and without drainage. ~Mouth reveals moist mucous membranes and the throat is without erythema and exudate. ~The external ears are intact. The ear canals are patent and without drainage. The tympanic membranes are intact. Neck: the neck is supple with full range of motion and non-tender. There are no carotid bruits. ~There is no neck vein distension. Respiratory: Chest is non-tender. ~Lungs are clear to auscultation and breath sounds are symmetrical and equal. Cardiovascular: Heart is regular rate and rhythm. ~There is no murmur or rub auscultated. ~~There is no peripheral edema and pulses are symmetrical and equal. Abdomen: The abdomen is soft and non-tender. ~There are normal bowel sounds heard in all four quadrants and there is no organomegaly palpated. Musculoskeletal: There is no back tenderness noted. ~Extremities are non-tender with full range of motion. ~There is good capillary refill. ~There is no peripheral edema or calf tenderness elicited. Patient grimaces from time to time but I cannot reproduce the pain. Neurological: Patient is alert and oriented to person, place and time. ~The patient has symmetrical motor strength in all four extremities. ~Cranial nerves are grossly intact. Deep tendon reflexes are symmetrical and equal in all four extremities. Psychiatric: The patient has an appropriate affect and does not exhibit any anxiety or depression. Triage Information Reviewed: Yes Vital Signs On Initial Exam: Initial Vitals Temp Pulse Resp BP Pulse Ox 99.2 F 116 19 130/57 93 07/20/17 16:51 07/20/17 16:51 07/20/17 16:51 07/20/17 16:51 07/20/17 16:51 Vital Signs Reviewed: Yes Diagnostics - Vital Signs Vital Signs Temp Pulse Resp BP Pulse Ox 07/20/17 16:51 99.2 F 116 19 130/57 93 - Laboratory Lab Statement: Any lab studies that have been ordered have been reviewed, and results considered in the medical decision making process. - Radiology Hip/Pelvis XR Xray Interpretation: No Acute Changes Radiology Interpretation Completed By: Radiologist - NO ACUTE PLAIN RADIOGRAPHIC FINDINGS. Dr. Cevallos has reviewed this report. - CT Pelvis CT CT Interpretation: No Acute Changes CT Interpretation Completed By: Radiologist - NO ACUTE CT FINDINGS. Dr. Cevallos has reviewed this report. Lumbar Spine CT CT Interpretation: No Acute Changes CT Interpretation Completed By: Radiologist - NO ACUTE CT FINDINGS. SPECT VERTEBRAL METASTASIS WITHOUT RADIOGRAPHIC CHANGE. Dr. Cevallos has reviewed this report. Lower Extremity Course/Dx - Course Course Of Treatment: Ms. Carmen well a few weeks ago and has had an exacerbation of left low back/ hip pain since. She had a fall in bed yesterday which again aggravated it. She was given a rescue dose of morphine and so is not in much pain when I see her. CT scan is negative for a fracture but does likely show metastatic disease. We discussed the use of her pain medications and I recommended she take a bit more of her oxycodone as a base and contact Dr. Good for further recommendations. - Diagnoses Provider Diagnoses: Chronic pain Discharge - Discharge Plan Condition: Stable Disposition: HOME Patient Education Materials: Chronic Pain (ED) Referrals: Kandice Good MD [Primary Care Provider] - 1 Day Additional Instructions: It is OK to take your Oxycodone every three hours except every four hours. Give Dr. Good's office a call tomorrow morning. Return to the emergency department for new or worsening symptoms. The documentation as recorded by the Marah beckham Thomas accurately reflects the service I personally performed and the decisions made by , Taras Cevallos MD.
[2017-07-20 21:47] VITALS: BP 129/44
== END 2017-07-20 19:42 | disposition home or self-care (01) ==
LOC: ED 16:42
DX: G89.29 Other chronic pain (principal); Z91.81 History of falling; C80.1 Malignant (primary) neoplasm, unspecified; Z87.891 Personal history of nicotine dependence
CPT/HCPCS: 72131; 72192; 99283; A9270-GY